=== PATIENT | male | born 1985 | race Caucasian/White ===

== ENCOUNTER 2017-05-13 20:35 | Emergency (ER) | payer OTHER ==
[2017-05-13 20:44] VITALS: RESP 16; TEMP 98.6
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
[2017-05-13] MEDS ORDERED: HYDROCODONE/APAP 5/325 TAB PO ONE (21:30)
[2017-05-13] MEDS ORDERED: IBUPROFEN 600 MG TAB PO ONE (21:30)
[2017-05-13 22:27] VITALS: BP 120/75; PULSE 79; O2SAT 98
== END 2017-05-13 22:26 | disposition home or self-care (01) ==
DX: S39.92XA Unspecified injury of lower back, initial encounter (principal); S69.91XA Unspecified injury of right wrist, hand and finger(s), initial encounter; S69.92XA Unspecified injury of left wrist, hand and finger(s), initial encounter; W10.8XXA Fall (on) (from) other stairs and steps, initial encounter; Y99.8 Other external cause status; Y93.39 Activity, other involving climbing, rappelling and jumping off
CPT/HCPCS: L3908